=== PATIENT | female | born 1965 | race Caucasian/White ===

== ENCOUNTER 2022-05-31 12:44 | Outpatient (CLI) | payer OTHER, SELFPAY ==
[2022-05-31 21:48] LABS: Albumin* 4.9 g/dL (3.3-5.0); Chloride* 104 mmol/L (96-114); Potassium* 5.2 mmol/L (3.6-5.1); Sodium* 140 mmol/L (135-149)
[2022-05-31 21:50] LABS: Cholesterol* 266 mg/dL (90-199); Creatinine* 0.6 mg/dL (0.5-1.5); Estimated Glomerular Filt Rate 106 ml/min
[2022-05-31 21:51] LABS: Alanine Aminotransferase* 45 U/L (4-35); Alkaline Phosphatase* 128 U/L (40-150); Aspartate Amino Transferase* 34 U/L (12-35); Bilirubin Total* 0.5 mg/dL (0.1-1.5); Blood Urea Nitrogen* 17 mg/dL (7-30); Carbon Dioxide* 25 mmol/L (20-32); Glucose* 93 mg/dL (60-115); Total Protein* 7.6 g/dL (6.0-8.3); Triglycerides* 145 mg/dL (40-149)
[2022-05-31 21:52] LABS: Calcium* 9.9 mg/dL (8.4-10.6); HDL Cholesterol* 86 mg/dL (>=50); LDL Cholesterol Calculated 151 mg/dL (<100)
[2022-05-31 22:38] LABS: Hepatitis C Virus Antibody* Negative (Negative)
== END 2022-05-31 12:45 | disposition home or self-care (01) ==
PROVIDERS: PCP Family Medicine; Visit Provider Family Medicine
DX: Z00.00 Encounter for general adult medical examination without abnormal findings (principal); R63.5 Abnormal weight gain; R68.82 Decreased libido; Z11.59 Encounter for screening for other viral diseases; Z13.6 Encounter for screening for cardiovascular disorders
CPT/HCPCS: 80053; 80061; 84443; 86803

== ENCOUNTER 2022-09-06 12:42 | Outpatient (CLI) | payer OTHER, SELFPAY ==
--- NOTE | 2022-09-06 13:00 | CRLHL7_ITS ---
For Patients: As a result of the Century Cures Act, medical imaging exams and procedure reports are released immediately into your electronic medical record. You may view this report before your referring provider. If you have questions, please contact your health care provider. BILATERAL SCREENING MAMMOGRAM WITH COMPUTER-AIDED DETECTION AND TOMOSYNTHESIS TECHNIQUE: CC and MLO views were obtained. These mammographic images have been obtained using full-field digital technique. These mammographic images were interpreted with the benefit of computer-aided detection. Breast Tomosynthesis was used in this interpretation. COMPARISON FILM: 08/06/21, 07/03/20, 08/30/16. FINDINGS: There are scattered areas of fibroglandular density IMPRESSION: There is no radiographic evidence for malignancy. ASSESSMENT: BI-RADS Category 2: Benign RECOMMENDATION: Routine screening mammogram in 1 year. A lay language report of this examination will be provided to the patient. Kenny Koehler M.D. Diagnostic Radiologist [email or web address] SHERRY/Dictated by: Kenny Koehler MD @ 09/09/2022 12:54:00 PM (Electronically Signed)
== END 2022-09-06 12:43 | disposition home or self-care (01) ==
LOC: MAMMO 12:43
PROVIDERS: PCP Family Medicine; Visit Provider Family Medicine
DX: Z12.31 Encounter for screening mammogram for malignant neoplasm of breast (principal)
CPT/HCPCS: 77063; 77067

== ENCOUNTER 2022-10-17 16:15 | Outpatient (CLI) | payer OTHER, SELFPAY | END 2022-10-17 16:16 | disposition home or self-care (01) | LOC: FRMREF 16:16 | PROVIDERS: PCP Family Medicine; Visit Provider Family Medicine | DX: Z00.00 Encounter for general adult medical examination without abnormal findings (principal); R73.03 Prediabetes; E78.5 Hyperlipidemia, unspecified; E88.89 Other specified metabolic disorders | CPT/HCPCS: 80053 ==

== ENCOUNTER 2023-01-06 09:11 | Outpatient (CLI) | payer OTHER, SELFPAY ==
--- NOTE | 2023-01-06 09:15 | US_ITS ---
Final Report Patient: BRIAN WISE Facility:?[facility] Patient ID:?[id number] Site Patient ID:?[id number]. Site :?[id number] Study:?US Abdomen/Pelvis -01/06/2023 9:52:06 AM Ordering Physician:?Sage Rodriguez Final Report: INDICATION: Hepatic fatty infiltration. TECHNIQUE: Right upper quadrant ultrasound. COMPARISON: None. FINDINGS: Diffusely increased heterogeneous echotexture somewhat coarsened. Although nonspecific this could reflect fatty infiltration or other intrinsic hepatic parenchymal processes such as cirrhosis. Within the left hepatic lobe there is a hypoechoic mass measuring 8.2 x 9.2 [address] versus an MRI with attention directed to the liver is recommended. Normal gallbladder without stones or sludge. The gallbladder wall measures 2 mm and the common bile duct 6 mm. No hydronephrosis of the right kidney which measures 10.6 x 4.3 x 4.8 cm. The proximal abdominal aorta is normal at 2.3 cm. The proximal IVC is normal. No upper abdominal ascites. The visualized pancreas is normal. IMPRESSION: 1. Diffusely increased hepatic echotexture nonspecific potentially related to fatty infiltration or other intrinsic hepatic parenchymal process. 2. Slightly lobulated left hepatic lobe mass measuring 8.2 x 9.2 x 10 cm. Comparison with prior correlative studies recommended as a 1st step. If none are available, a CT or MRI with attention directed to the liver is recommended. Dictated by Taj Pearson MD @ 01/06/2023 10:13:49 AM ----- ADDENDUM ----- Addendum: An outside CT of the abdomen and pelvis December 01, 2018 and an outside MR I of the abdomen December 11, 2018, both from [facility] are now available for correlation with the ultrasound of the abdomen. There is a stable mass within the left hepatic lobe compatible with focal nodular hyperplasia as described on both outside prior studies. Therefore no further imaging or workup of this lesion is required. Dictated by Taj Pearson MD @ Jan 10 2023 10:53AM (Electronic Signature)
== END 2023-01-06 09:12 | disposition home or self-care (01) ==
LOC: US 09:12
PROVIDERS: PCP Family Medicine; Visit Provider Family Medicine
DX: E88.89 Other specified metabolic disorders (principal); K76.0 Fatty (change of) liver, not elsewhere classified
CPT/HCPCS: 76705

== ENCOUNTER 2024-10-21 09:44 | Outpatient (CLI) | payer BC, OTHER, SELFPAY | END 2024-10-21 09:45 | disposition home or self-care (01) | PROVIDERS: PCP Family Medicine; Visit Provider Family Medicine | DX: E78.5 Hyperlipidemia, unspecified (principal); E88.89 Other specified metabolic disorders; R73.03 Prediabetes | CPT/HCPCS: 80053; 80061 ==